=== PATIENT | male | born 1985 | race Caucasian/White ===

== ENCOUNTER 2018-01-19 21:33 | Emergency (ER) | payer SELFPAY ==
[~2018-01-19] VITALS: Ht 175.3 cm; Wt 108.2 kg
[2018-01-19 21:42] VITALS: Ht 175.3 cm; Wt 108.2 kg
[2018-01-20 00:18] LABS: BASOPHIL % 0.8 % (0-2); PLATELET COUNT 232 x10^3mcL (130-400); RED CELL DISTRIBUTION WIDTH 13.9 % (11.5-14.5)
[2018-01-20 00:25] LABS: CALCIUM 8.5 mg/dL (8.5-10.1); CARBON DIOXIDE 26.2 mmol/L (21-32); CHLORIDE SERUM 104 mmol/L (98-107); GFR1 > 60 mL/min; GLUCOSE SERUM 122 mg/dL (74-106); POTASSIUM SERUM 3.6 mmol/L (3.5-5.1); SODIUM SERUM 136 mmol/L (136-145)
[2018-01-20 00:29] LABS: ALKALINE PHOSPHATASE 79 U/L (46-116); ALT/SGPT 49 U/L (16-63); AST/SGOT 22 U/L (15-37); BILIRUBIN TOTAL 0.2 mg/dL (0.20-1.00)
[2018-01-20 00:32] LABS: ALBUMIN 3.3 g/dL (3.4-5.0)
[2018-01-20 01:35] LABS: AMPHETAMINE QUAL UR NONE DETECTED (NEG <=1000)
[2018-01-20 03:45] VITALS: BP 127/70
== END 2018-01-20 03:45 | disposition home or self-care (01) ==
LOC: ED 21:33
PROVIDERS: Emergency Medicine
DX: R07.89 Other chest pain (principal); R06.02 Shortness of breath; R42 Dizziness and giddiness; R05 Cough
CPT/HCPCS: 36415; 83880; Q0092